=== PATIENT | male | born 1955 | race Caucasian/White ===

== ENCOUNTER → 2019-07-27 | Outpatient (CLI) | payer OTHER | LOC: M.CT 13:10 | DX: N02.9 Recurrent and persistent hematuria with unspecified morphologic changes (principal); M54.5 Low back pain ==

== ENCOUNTER → 2021-12-02 | Outpatient (CLI) | payer OTHER | LOC: M.CT 08:46 | PROVIDERS: ATTEND Family Medicine | DX: Z13.6 Encounter for screening for cardiovascular disorders (principal); I25.10 Atherosclerotic heart disease of native coronary artery without angina pectoris; E78.00 Pure hypercholesterolemia, unspecified ==